=== PATIENT | female | born 1960 | race Caucasian/White ===

== ENCOUNTER 2024-01-30 07:31 | Emergency (ER) | payer OTHER, SELFPAY ==
--- NOTE | 2024-01-30 07:35 | XR_ITS ---
WS: [id number] Exam: XR ankle RT min 3V* [id number] Date/Time of Exam: 01/30/2024 7:44 AM Reason For Exam: pain There is a nondisplaced fracture of the lower fibula. No other fractures of the ankle. The ankle mort ise is equidistant. Lateral soft tissue swelling. IMPRESSION: 1. Nondisplaced lower fibular fracture with soft tissue swelling.
[2024-01-30 07:42] VITALS: BP 164/75; PULSE 76; RESP 18; TEMP 36.4; O2SAT 98; BMI 28.3
[2024-01-30] MEDS: HYDROcodone-acetaminophen 5-325 mg Tablet 2 TAB PO (08:38)
[2024-01-30 09:01] VITALS: BP 155/85; PULSE 77; RESP 16; O2SAT 96
--- NOTE | 2024-01-30 09:31 | W.ED.EXTPRO ---
HPI - Extremity Problem General: Chief complaint: Extremity Injury, Lower Stated complaint: Right ankle pain Time Seen by Provider: 01/30/24 07:34 Source: patient History of Present Illness: 63-year-old female presents to the emergency room complaining of right ankle pain. She slipped in some urine where she works at a long-term and has pain in the lateral portion of the right ankle unable to bear weight without severe pain. Moderate amount of swelling. MD Complaint: extremity pain and joint pain Review of Systems Musc: Reports: joint pain and joint swelling Physical Exam Narrative: EXAM NARRATIVE: Neurovascular is intact right foot and ankle are significantly swollen and tender. Dorsalis pedis pulse present posterior tibialis present. Sensation normal. No other injuries. Course Vital Signs: Vital signs: Vital Signs Temperature 97.6 F 01/30/24 07:42 Pulse Rate 77 01/30/24 09:01 Respiratory Rate 16 01/30/24 09:01 Blood Pressure 155/85 01/30/24 09:01 Pulse Oximetry 96 01/30/24 09:01 Oxygen Delivery Me thod Room Air 01/30/24 07:42 MDM - Extremity (Nontraumatic) Medical Decision Making Right distal malleolus fracture. Posterior splint nonweightbearing use crutches referral to podiatry pain medication given elevate and ice as needed Medical Records I reviewed the patient's medical records. Lab Data I reviewed the patient's lab results. All radiology interpretation(s) finalized by discharge Discharge Plan Discharge Patient Disposition: Home Clinical Impression: Fracture of distal end of right fibula Condition: Stable Prescriptions: New hydrocodone-acetaminophen 5-325 mg tablet 1 tab PO Q6H PRN (Reason: pain) Qty: 15 0RF Discharge Orders: Discharge ED (Routine); Ordered 01/30/24 Ordered By: Mervin Cao Discharge Diet: Usual diet Discharge Activity: Limit activity as instructed Patient Instructions: Opioid Safety, Pain Management Activity Restrictions/Additional Instructions: Thank you for choosing [facility] for your healthcare needs today. Please realize this is an emergency room and that we are providing you with a medical screening exam and this may not be complete and all inclusive of all the testing and or work up that you may need to determine your ailment or severity of your illness. It is very important that you follow up as instructed or that you return to the Emergency Department should you have concerns or if your condition changes or worsens in any way. You were seen today for right ankle pain x-ray shows a distal fibula fracture. Recommend nonweightbearing and use of the splint until you follow-up with podiatry. Case management will contact podiatry for a follow-up appointment with Dr. Chowdary. You can use ice and elevate the right foot as well as use the pain medication prescribed at the time of your visit today. Coding Level of Care Code ED [employer] for Gatito Guzman
--- NOTE | 2024-02-06 08:41 | DCPLANNER ---
Message sent to Podiatry Distal Fibula Fx
== END 2024-01-30 09:02 | disposition home or self-care (01) ==
PROVIDERS: Emergency Provider Family Medicine
DX: S82.831A Other fracture of upper and lower end of right fibula, initial encounter for closed fracture (principal); W01.0XXA Fall on same level from slipping, tripping and stumbling without subsequent striking against object, initial encounter; Y92.129 Unspecified place in nursing home as the place of occurrence of the external cause; Y99.0 Civilian activity done for income or pay
CPT/HCPCS: 29505; 73610; 99283

== ENCOUNTER 2024-03-02 18:25 | Emergency (ER) | payer OTHER, SELFPAY ==
[2024-03-02 18:30] VITALS: BP 177/87; PULSE 92; RESP 16; TEMP 36.7; O2SAT 96
--- NOTE | 2024-03-02 18:42 | USR_ITS ---
PROCEDURE INFORMATION: Exam: US Duplex Left Lower Extremity Veins, Limited Exam date and time: 03/02/2024 7:14 PM Age: 63 years old Clinical indication: Pain; Leg, lower; Left; Additional info: Le edema redness pain TECHNIQUE: Imaging protocol: Real-time duplex ultrasound of the left extremity with 2-D ramos scale, color Doppler flow and spectral waveform analysis including responses to compression and other maneuvers (when performed) with image documentation. Limited exam focused on the left lower extremity veins. COMPARISON: No relevant prior studies available. FINDINGS: Left deep veins: Unremarkable. The common femoral, femoral, proximal profunda femoral, popliteal and visualized calf veins are patent without thrombus. Normal compressibility, augmentation response and Doppler waveforms. Superficial veins: Greater saphenous vein at the saphenofemoral junction is patent without thrombus. Soft tissues: Unremarkable. US/[place] [id number] IMPRESSION: No sonographic evidence of deep vein thrombosis.
--- NOTE | 2024-03-02 18:43 | ED_ITS ---
HPI - Extremity Problem 2 General: Chief complaint: Extremity Problem,Nontraumatic Stated complaint: left leg urgent care sent Time Seen by Provider: 03/02/24 18:30 History of Present Illness: 63-year-old female who suffered an ankle fracture on the right side a month ago. She has been essentially nonweightbearing since. She developed left-sided swelling, redness and pain overnight last night. Pain is to the left medial calf, and left knee. There are some redness and warmth as well. She denies fever. There is swelling. She denies chest pain or shortness of breath. Associated symptoms: Reports rash; Deny chest pain or fever(s) Review of Systems 2 Const: Denies: fever(s) Eyes: Denies: change in vision ENMT: Denies: throat pain Card: Denies: chest pain Resp: Denies: dyspnea GI: Denies: vomiting Skin/Breast: Reports: rash Physical Exam 2 Const: COMMON NORMALS: no acute distress GENERAL APPEARANCE: not ill appearing HENMT: COMMON NORMALS: normocephalic and Normal external nose present HEAD & SCALP: normocephalic NOSE: Normal external nose present Eye: COMMON NORMALS: EOMs intact bilaterally Chest: CHEST: Yes Symmetrical chest wall rise Resp: COMMON NORMALS: normal respiratory effort, No use of accessory muscles and clear to auscultation bilaterally AUSCULTATION: clear to auscultation bilaterally Cardio: COMMON NORMALS: regular rate and regular rhythm RATE: regular rate RHYTHM: regular rhythm Extremity: NARRATIVE EXTREMITY EXAM: Exam the left lower extremity reveals mild edema. There is warmth to the leg below the knee. There is some redness medially. There is swelling medial and superior to the knee as well. There is mild tenderness. No deformity. Course 2 Vital Signs: Vital signs: Vital Signs Temperature 98.1 F 03/02/24 20:33 Pulse Rate 92 03/02/24 20:33 Respiratory Rate 16 03/02/24 20:33 Blood Pressure 177/87 03/02/24 20:33 Pulse Oximetry 96 03/02/24 20:33 Oxygen Delivery Me thod Room Air 03/02/24 18:30 MDM - Extremity (Nontraumatic) Medical Decision Making Ultrasound is negative for DVT. She is afebrile. Hemoglobin is 11. White blood cell count is 9. CRP is 100. Lactic acid is 0.8. Sed rate is 59. She will be treated for a cellulitis. Outpatient follow-up. Lab Data 03/02/24 19:05 03/02/24 19:05 Radiology Impressions Venous Duplex 03/02/24 18:42 IMPRESSION: No sonographic evidence of deep vein thrombosis. Laboratory Results WBC 8.91 10^3/uL (3.29-11.43) 03/02/24 19:05 RBC 3.99 10^6/uL (3.85-5.65) 03/02/24 19:05 Hgb 10.70 g/dL (11.27-16.99) L 03/02/24 19:05 Hct 34.2 % (36-47) L 03/02/24 19:05 MCV 85.7 fl (85-98) 03/02/24 19:05 MCH 26.8 pg (27-33) L 03/02/24 19:05 MCHC 31.3 g/dL (30-55) 03/02/24 19:05 RDW 15.5 % (12.1-15.1) H 03/02/24 19:05 Plt Count 337 10^3/cmm (157-399) 03/02/24 19:05 MPV 10.1 fL (7.4-10.4) 03/02/24 19:05 Neut % (Auto) 75.6 % 03/02/24 19:05 Lymph % (Auto) 12.1 % 03/02/24 19:05 [place] % (Auto) 8.4 % 03/02/24 19:05 Eos % (Auto) 3.0 % 03/02/24 19:05 Baso % (Auto) 0.6 % 03/02/24 19:05 Neut # (Auto) 6.73 10^3/uL (1.8-7.7) 03/02/24 19:05 Lymph # (Auto) 1.1 10^3/uL (0.8-4.8) 03/02/24 19:05 [place] # (Auto) 0.8 10^3/uL (0.2-0.9) 03/02/24 19:05 Eos # (Auto) 0.3 10^3/uL (0.0-0.8) 03/02/24 19:05 Baso # (Auto) 0.1 10^3/uL (0.0-0.1) 03/02/24 19:05 Nucleated RBC % (auto) 0 % 03/02/24 19:05 Nucleated RBCs # 0.0 /100WBC 03/02/24 19:05 ESR 59 mm/hr (0-15) H 03/02/24 19:05 Sodium 140 mmol/L (136-145) 03/02/24 19:05 Potassium 3.8 mmol/L (3.5-5.1) 03/02/24 19:05 Chloride 103 mmol/L (98-107) 03/02/24 19:05 Carbon Dioxide 25 mmol/L (22-29) 03/02/24 19:05 Anion Gap 15.8 (5-19) 03/02/24 19:05 BUN 12 mg/dL (8-23) 03/02/24 19:05 Creatinine 0.5 mg/dL (0.5-0.9) 03/02/24 19:05 GFR Calculation 123.8 mL/min (90-130) 03/02/24 19:05 Glucose 109 mg/dL (65-115) 03/02/24 19:05 Calculated Osmolality 290 mOsm/kg (285-295) 03/02/24 19:05 Lactic Acid 0.8 mmol/L (0.5-2.2) 03/02/24 19:05 Calcium 8.7 mg/dL (8.5-10.5) 03/02/24 19:05 Total Bilirubin 0.5 mg/dL (0.15-1.2) 03/02/24 19:05 AST 13 U/L (0-32) 03/02/24 19:05 ALT 13 U/L (0-33) 03/02/24 19:05 Alkaline Phosphatase 96 U/L (35-105) 03/02/24 19:05 C-Reactive Protein 100.0 mg/L (0.0-4.9) H 03/02/24 19:05 Total Protein 6.9 g/dL (6.6-8.7) 03/02/24 19:05 Albumin 4.1 g/dL (3.5-5.2) 03/02/24 19:05 Globulin 2.8 g/dL (1.3-4.6) 03/02/24 19:05 Procalcitonin 0.07 ng/mL (0-0.5) 03/02/24 19:05 All radiology interpretation(s) finalized by discharge Discharge Plan Discharge Patient Disposition: Home Clinical Impression: Cellulitis Condition: Stable Prescriptions: New doxycycline hyclate 100 mg tablet 100 mg PO BID 10 Days Qty: 20 0RF No Action oxycodone-acetaminophen 5-325 mg tablet PO aspirin [Jan Low Dose Aspirin] 81 mg tablet,delayed release (DR/EC) 81 mg PO DAILY Discharge Orders: Discharge ED (Routine); Ordered 03/02/24 Ordered By: Kevin Arteaga Patient Instructions: Cellulitis (ED), Opioid Safety, Pain Management Activity Restrictions/Additional Instructions: Return for worsening swelling, worsening redness, worsening pain, or fever despite 2-3 more doses of antibiotics. You may ice and elevate which can help. Follow-up with your doctor next week. Coding Level of Care Code ED Consulting Nurse for Gatito Guzman
[2024-03-02 19:11] LABS: Basophils # 0.1 10^3/uL (0.0-0.1); Basophils % 0.6 %; Eosinophils # 0.3 10^3/uL (0.0-0.8); Hematocrit 34.2 % (36-47); Lymphocytes # 1.1 10^3/uL (0.8-4.8); Lymphocytes % 12.1 %; Mean Corpuscular HGB Conc 31.3 g/dL (30-55); Mean Corpuscular Hemoglobin 26.8 pg (27-33); Mean Corpuscular Volume 85.7 fl (85-98); Mean Platelet Volume 10.1 fL (7.4-10.4); Monocytes # 0.8 10^3/uL (0.2-0.9); Monocytes % 8.4 %; Neutrophils # 6.73 10^3/uL (1.8-7.7); Neutrophils % 75.6 %; Nucleated Red Blood Cells % 0 %; Platelet Count 337 10^3/cmm (157-399); Red Blood Count 3.99 10^6/uL (3.85-5.65); Red Cell Distribution Width 15.5 % (12.1-15.1); White Blood Count 8.91 10^3/uL (3.29-11.43)
[2024-03-02 19:17] LABS: Erythrocyte Sedimentation Rate 59 mm/hr (0-15)
[2024-03-02 19:31] LABS: Lactic Sepsis W/Reflex 0.8 mmol/L (0.5-2.2)
[2024-03-02 19:52] LABS: Alanine Aminotransferase 13 U/L (0-33); Albumin Level 4.1 g/dL (3.5-5.2); Alkaline Phosphatase 96 U/L (35-105); Anion Gap 15.8 (5-19); Aspartate Amino Transferase 13 U/L (0-32); Blood Urea Nitrogen 12 mg/dL (8-23); Calcium 8.7 mg/dL (8.5-10.5); Carbon Dioxide 25 mmol/L (22-29); Chloride 103 mmol/L (98-107); Creatinine Clr Calc Pharmacy 82.0294; Globulin 2.8 g/dL (1.3-4.6); Glomerular Filtration Rate 123.8 mL/min (90-130); Glucose 109 mg/dL (65-115); Osmolality Calculated 290 mOsm/kg (285-295); Potassium 3.8 mmol/L (3.5-5.1); Sodium 140 mmol/L (136-145); Total Bilirubin 0.5 mg/dL (0.15-1.2); Total Protein 6.9 g/dL (6.6-8.7)
[2024-03-02 19:58] LABS: Procalcitonin 0.07 ng/mL (0-0.5)
[2024-03-02] MEDS: doxycycline 100 mg Tablet PO (20:30)
[2024-03-02 20:33] VITALS: BP 177/87; PULSE 92; RESP 16; TEMP 36.7; O2SAT 96
== END 2024-03-02 20:37 | disposition home or self-care (01) ==
PROVIDERS: Emergency Provider Emergency Medicine
DX: L03.116 Cellulitis of left lower limb (principal)
CPT/HCPCS: 80053; 83605; 84145; 85025; 85651; 86140; 93971; 99284

== ENCOUNTER → 2024-08-29 15:46 | Outpatient (BNVA) | payer OTHER, SELFPAY | PROVIDERS: Visit Provider Family Medicine | DX: M17.12 Unilateral primary osteoarthritis, left knee (principal); M25.462 Effusion, left knee; M25.562 Pain in left knee | CPT/HCPCS: 73562 ==